=== PATIENT | female | born 1985 | race African-American/Black ===

== ENCOUNTER 2019-05-23 23:30 | Emergency (ER) | payer SELFPAY ==
[~2019-05-23] VITALS: Ht 167.6 cm; Wt 90.9 kg
[2019-05-23 23:33] VITALS: Ht 167.6 cm; Wt 90.9 kg
[2019-05-24] MEDS ORDERED: KEFLEX500 MG PO (00:11)
[2019-05-24 00:24] VITALS: BP 132/89
== END 2019-05-24 00:24 | disposition home or self-care (01) ==
LOC: D.ER 23:30
DX: S61.012A Laceration without foreign body of left thumb without damage to nail, initial encounter (principal); W25.XXXA Contact with sharp glass, initial encounter; Y93.9 Activity, unspecified; Y92.9 Unspecified place or not applicable